=== PATIENT | female | born 1995 | race African-American/Black ===

== ENCOUNTER 2024-06-30 03:34 | Emergency (ER) | payer MEDICAID ==
[~2024-06-30] VITALS: Ht 175.3 cm; Wt 113.0 kg
[2024-06-30 03:37] VITALS: BP 110/65; PULSE 84; RESP 15; TEMP 37; O2SAT 100
== END 2024-06-30 07:25 | disposition home or self-care (01) ==
LOC: ER 03:34
DX: F41.9 Anxiety disorder, unspecified (principal)
CPT/HCPCS: 99283